=== PATIENT | female | born 1990 | race African-American/Black ===

== ENCOUNTER → 2018-03-09 | Outpatient (CLI) | payer OTHER ==
[2018-03-09 20:52] LABS: HCG, SERUM QUANTITATIVE 17902 MIU/ML
== END ==
LOC: M WUC 18:29
DX: N39.0 Urinary tract infection, site not specified (principal)
CPT/HCPCS: 84702

== ENCOUNTER → 2018-09-10 | Outpatient (CLI) | payer OTHER ==
[~2018-09-10] VITALS: Ht 154.9 cm; Wt 64.3 kg
[~2018-09-10] MED LIST: PRENCHW PO
[2018-09-10 21:17] VITALS: BP 118/61
[2018-09-10 21:59] LABS: APPEARANCE, URINE CLEAR (CLEAR); BACTERIA, URINE AUTO NEGATIVE (NEGATIVE); BILIRUBIN, URINE AUTO NEGATIVE (NEGATIVE); BLOOD, URINE BLOOD NEGATIVE (NEGATIVE); COLOR, URINE STRAW (YELLOW); GLUCOSE, URINE (UA) AUTO NEGATIVE (NEGATIVE); KETONE, URINE AUTO NEGATIVE (NEGATIVE); LEUKOCYTE ESTERASE, URINE AUTO 3+ (NEGATIVE); NITRITE, URINE AUTO NEGATIVE (NEGATIVE); PROTEIN, URINE AUTO NEGATIVE (NEGATIVE); RBC, URINE AUTO 1 /HPF (0-3); SPECIFIC GRAVITY URINE AUTO 1.003 (1.002-1.035); SQUAMOUS EPITHELIAL CELL UR AU 1 /HPF (0-6); UROBILINOGEN, URINE AUTO 0.2 mg/dL (0.0-2.0); WBC, URINE AUTO 1 /HPF (0-3)
[2018-09-10 23:08] VITALS: BP 104/55
--- NOTE | 2018-09-11 15:18 | HPE ---
DATE OF ADMISSION: 09/10/2018 A 28-year-old 3, para 1, last menstrual period (LMP) 01/27/2018, estimated date of confinement (EDC) 11/03/2018 at 32 and 3 weeks of gestation, came in without her passport without calling because she had some spotting when she voided and has had no spotting, cramping since. PAST HISTORY: In 2013, 14 weeks spontaneous , dilatation and curettage (D and C). In 2014, 38 weeks, spontaneous vaginal delivery, 6 pounds 9 ounces. Her temperature is 98.3, blood pressure 1118/61, respirations 18, pulse 129. Urine is 1003, +3 leukocytes, pH of 8, and trace of blood. Labs are A positive, HIV negative, hepatitis negative, RPR negative, rubella immune, Varicella immune. Urine had mixed manny. Gonorrhea and chlamydia negative. One-hour glucose 100. On examination, no acute distress. Symphysis fundus height is appropriate. Four-quadrant bowel sounds. Category 1 strip on monitor. No contractions. There are accelerations. No decelerations. Baseline was normal. Moderate variability. She has had no spotting. Wearing a pad. No contractions. Urine was sent for culture and sensitivity (C and S). Precautions were given. The rest of the examination is unremarkable. She is normocephalic, atraumatic. Neck: Full range of motion. Pupils equal and reactive to light. Distal pulses symmetric. No evidence of deep vein thrombosis (DVT), pulmonary embolism (PE), or superficial phlebitis. Lungs are clear bilaterally to bases. No wheezes or rhonchi. No costovertebral angle (CVA) tenderness. Four-quadrant bowel sounds are noted. She has no rashes, lesions, or pruritus. No arthralgia, myalgia. No complaint of joint pain. No complaint of cough, wheeze, shortness of breath, or dyspnea on exertion. Not bleeding. Neurologic complete. No incontinency, urgency, or frequency. No nausea, vomiting, diarrhea, constipation. No diabetic issues. No ACCOUNTS RECEIVABLE REPRESENTATIVE issues. PAST MEDICAL AND SURGICAL HISTORY: Noncontributory. FAMILY HISTORY: Noncontributory. SOCIAL HISTORY: She does not smoke, drink, abuse drugs. She is to a soldier. No domestic violence and good support systems. In summary, we have a 32 and 3 weeks of gestation who had some spotting with voiding. Urine was sent for C and S. Precautions were given. Use of increased fluids, cranberry pills, and we will evaluate her urine for C and S when it returns and call her if there is required antibiotic treatment. The patient was discharged undelivered. Has a followup September 24.
== END ==
LOC: M LDO 20:53
PROVIDERS: ATTEND Obstetrics & Gynecology
DX: O26.853 Spotting complicating pregnancy, third trimester (principal); Z3A.32 32 weeks gestation of pregnancy
CPT/HCPCS: 59025; 81001; 87086; G0378; G0463

== ENCOUNTER 2018-10-26 02:59 | Inpatient (IN) | payer OTHER ==
[~2018-10-26] VITALS: Ht 154.9 cm; Wt 67.4 kg
[2018-10-26] VITALS (54 sets, daily range): BP systolic 100–238; BP diastolic 51–116
[2018-10-26] MEDS ORDERED: VITA100T59 PO (03:15)
[2018-10-26] MEDS ORDERED: IRON27TA2 PO (03:15)
[2018-10-26] MEDS ORDERED: LR 1,000 ML IV SCH (03:38)
[2018-10-26] MEDS ORDERED: LACTATED RINGER'S 1000 ML IV STA (03:38)
--- NOTE | 2018-10-26 03:46 | HPEPDOC ---
Obstetrical History & Physical General Date of Admission Oct 26, 2018 at 03:37 History of Present Illness 28 y/o at 38+6 with LOF since 0140 this AM. Woke up with cramping. No VB. No reg ctx's yet. Chief Complaint: LOF, term, Occational cramping Information Provided By: Patient Care Care: Good Care Dating Final EDC by: LMP, 1st trimester (US) Past Medical History Past Obstetrical History : Past Obstetrical History: Multigravida Type of Delivery: Spontaneous Vaginal Del. (2014 ) ACADEMIC SPECIALIST History: Spontaneous (D&C 2013) Past Medical History Medical History denies Surgical History: Dilatation and Curettage Family History Significant Family History: No pertinent family hx Social History Marital Status: Family situation: Spouse/partner home Psychosocial History: No pertinent psych hx * Smoker: non-smoker Alcohol: Denies Drugs: denies Abuse Violence Screening Have you been hit/kicked/slapp: No Have you been sexually assault: No Imunizations Tdap status: current Influenza Status: current Allergies Coded Allergies: No Known Allergies (Unverified , 10/26/18) Medications Scheduled (Iron) 27 Mg Tab, 1 TAB PO DAILY Ascorbic Acid (Vitamin C) 100 Mg Tab, 1 TAB PO DAILY Multivitamins/ ( 19) 1 Chw Chw, 1 TAB PO DAILY Physical Examination Physical Examination GENERAL: Alert and oriented times three. ABDOMEN: Gravid and non-tender to touch. FETUS: Is vertex (VTX) by sterile vaginal examination (SVE), 1-2/70/-2/vtx ballotable, obvious PROM with clear fluid EXTREMITIES: No edema. Laboratory Data Urine Culture: Contaminated Pertinent Laboratoy Data Blood Type: A+ RBC Antibody Screen: Negative HIV: Negative Hepatitis B: Negative Hepatitis C: Unknown Rapid Plasma Reagin: Nonreactive Rubella: Immune Varicella: Immune Chlamydia/Gonorrhea: Negative Group B Streptococcus: Negative Quad Screen Test: Declined Cystic Fibrosis: Negative Glucose Tolerance Test: 100 Anatomy Ultrasound Placenta Location: Anterior Normal Anatomy: Yes Placenta Previa: No Assessment Variability: Moderate Accelerations: Positive Decelerations: None Tocometer Contractions: Yes Frequency: irregular Duration: less than 90 seconds Strength: palpated as moderate Assessment/Plan Assessment PROM at 140 today Plan Admit and orient. [facility] Medical Specialist and consent. Diet: clears Group B Streptococcus (GBS) neg Labs and intravenous (IV) per unit protocol. Lactated Ringers (LR): Bolus 1000 mL if decides on epidural, then at 125 mL/hr. Anticipate normal spontaneous delivery () C-S as appropriate. Will SBAR to Dr Gresham at 0730, he will then check and manage the pt SESSIONS,MAXIMINO Smith MD Oct 26, 2018 03:46
[2018-10-26 03:57] LABS: HEMATOCRIT 37.3 % (36.0-47.0); HEMOGLOBIN 11.9 g/dl (12.0-15.5); MEAN CORPUSCULAR HEMOGLOBIN 26.6 pg (27.0-33.0); MEAN CORPUSCULAR HGB CONC 31.9 g/dl (32.0-36.5); MEAN CORPUSCULAR VOLUME 83.4 fl (80.0-96.0); PLATELET COUNT, AUTOMATED 201 10^3/uL (150-450); RED BLOOD COUNT 4.47 10^6/uL (4.00-5.40); WHITE BLOOD COUNT 5.2 10^3/uL (4.0-10.0)
--- NOTE | 2018-10-26 07:56 | IPNPDOC ---
Text Note Date of Service The patient was seen on 10/26/18. NOTE Accepting care of Delvin. 28 yo at 38+6 weeks who presented with PROM, clear fluid at ~0130. has been uncomplicated. Cervix: unchanged from admission, -/-2. FHR has been Cat I. Will start pitocin for augmentation. Epidural or IV analgesia when and if patient desires. All patient questions answered. Ramona Gresham DO VS,Ezequiel, I+O VS, Ezequiel, I+O Laboratory Tests 10/26/18 03:51 Red Blood Count 4.47, Mean Corpuscular Volume 83.4, Mean Corpuscular Hemoglobin 26.6 L, Mean Corpuscular Hemoglobin Concent 31.9 L, Red Cell Distribution Width 16.1 H Vital Signs Date Time Temp Pulse Resp B/P (MAP) Pulse Ox O2 Delivery O2 Flow Rate FiO2 10/26/18 05:37 97.9 16 10/26/18 03:24 113 111/62 (78) RAMONA GRESHAM DO Oct 26, 2018 07:56
[2018-10-26] MEDS ORDERED: OXYTOCIN DRIP 30 UNITS in APPROPRIATE DILUENT 1 EA IV SCH ×2 (08:00→21:11)
[2018-10-26] MEDS: LR 1,000 ML IV SCH ×2 (08:10→14:02)
[2018-10-26] MEDS ORDERED: BUTORPHANOL 2 MG/ML INJ (J0595) IV ONE (09:30)
[2018-10-26] MEDS ORDERED: FENTANYL 2MCG/ML ROPIVACAINE 0.2% IN 0.9% NACL 100ML IVBAG As Ordered ONE (11:59)
[2018-10-26] MEDS ORDERED: ONDANSETRON 4MG/2ML VIAL (J2405) IV PRN ×2 (13:30→21:15)
[2018-10-26] MEDS ORDERED: FENTANYL/ROPIVACAINE/NACL BAG 100 ML EPIDURAL SCH (13:30)
[2018-10-26] MEDS ORDERED: EPIDURAL/PCA KEYS XX PRN (13:30)
[2018-10-26] MEDS ORDERED: NALOXONE INJ 0.4 MG/1 ML VIAL (J2310) IV PRN (13:30)
[2018-10-26] MEDS ORDERED: diphenhydrAMINE INJ 50MG/ML VIAL (J1200) IV PRN (13:30)
[2018-10-26] MEDS ORDERED: EPIDURAL COMMENT XX SCH (13:30)
[2018-10-26] MEDS ORDERED: LACTATED RINGER'S 1000 ML IV PRN (13:30)
[2018-10-26] MEDS ORDERED: REFRIGERATOR IV KEYS XX PRN (13:30)
[2018-10-26] MEDS ORDERED: ePHEDrine SULFATE 25 MG/5 ML(5MG/ML) SYRINGE IV PRN (13:30)
--- NOTE | 2018-10-26 13:30 | IPNPDOC ---
Text Note Date of Service The patient was seen on 10/26/18. NOTE Called to room as patient had 7-8 minute FHR deceleration to the 70s after e pidural placement. Pitocin was stopped, an FSE was placed by nursing staff, positional changes were initiated, and fluid bolus was given. BP was 120s/60s. Cervix: 6/80/-1 by my exam. FHR recovered to BL 125 with moderate variability. Will allow for rest and recovery. Patient is progressing. Safe to proceed. All patient questions answered. Ramona Gresham DO VS,Ezequiel, I+O VS, Ezequiel, I+O Laboratory Tests 10/26/18 03:51 Red Blood Count 4.47, Mean Corpuscular Volume 83.4, Mean Corpuscular Hemoglobin 26.6 L, Mean Corpuscular Hemoglobin Concent 31.9 L, Red Cell Distribution Width 16.1 H Vital Signs Date Time Temp Pulse Resp B/P (MAP) Pulse Ox O2 Delivery O2 Flow Rate FiO2 10/26/18 12:43 128, 126 126/77 (93) 10/26/18 12:35 98.0 18 10/26/18 07:12 98 RAMONA GRESHAM DO Oct 26, 2018 13:30
--- NOTE | 2018-10-26 15:54 | IPNPDOC ---
Text Note Date of Service The patient was seen on 10/26/18. NOTE Presented to room for assessment of progress. Cervix: 6/90/0. Prolonged deceleration lasting 5 minutes after check when patient was turned to her left side. Pitocin was again stopped, as a brief period of tachysystole was evident. FHR recovered to BL 130, moderate variability. Progress has been minimal over the last two hours, and Fetus is demonstrating intolerance to pitocin augmentation. Will re assess cervix in 2-4 hours. If there is no change will consider restarting pitocin. If fetus does not tolerate pitocin augmentation, or labor without augmentation, would recommend delivery. All patient and questions answered. DO Mp VS,Ezequiel, I+O VS, Ezequiel, I+O Laboratory Tests 10/26/18 03:51 Red Blood Count 4.47, Mean Corpuscular Volume 83.4, Mean Corpuscular Hemoglobin 26.6 L, Mean Corpuscular Hemoglobin Concent 31.9 L, Red Cell Distribution Width 16.1 H Vital Signs Date Time Temp Pulse Resp B/P (MAP) Pulse Ox O2 Delivery O2 Flow Rate FiO2 10/26/18 15:00 134 18 115/67 (83) 10/26/18 14:13 97.7 10/26/18 07:12 98 RAMONA DIAZ DO Oct 26, 2018 15:54
--- NOTE | 2018-10-26 17:20 | IPNPDOC ---
Text Note Date of Service The patient was seen on 10/26/18. NOTE Delvin and her had questions and were concerned about re starting p itocin. She reports she had to push for two hours with her first baby and still required a vacuum for delivery. She and her are concerned about restarting pitocin again because they may have a lot of labor left, and thus more time for her baby's heart rate to respond poorly. She is currently in active phase labor, but her contractions are irregular. FHR has been Cat I since the pitocin was halted at ~1540. She requests more time to whether to start it again. Which is certainly reasonable as status is reassuring. I discussed rechecking her cervix at ~1800. If there is no change I would recommend pitocin augmentation. Should she decline pitocin augmentation, and again her cervix remains unchanged, then she may require a c section. She has been 6cm since ~1315 today. All patient and questions answered to their satisfaction. Ramona Gresham DO VS,Ezequiel, I+O VS, Ezequiel, I+O Laboratory Tests 10/26/18 03:51 Red Blood Count 4.47, Mean Corpuscular Volume 83.4, Mean Corpuscular Hemoglobin 26.6 L, Mean Corpuscular Hemoglobin Concent 31.9 L, Red Cell Distribution Width 16.1 H Vital Signs Date Time Temp Pulse Resp B/P (MAP) Pulse Ox O2 Delivery O2 Flow Rate FiO2 10/26/18 15:59 126 18 107/58 (74) 10/26/18 14:13 97.7 10/26/18 07:12 98 RAMONA GRESHAM DO Oct 26, 2018 17:20
--- NOTE | 2018-10-26 18:10 | IPNPDOC ---
Text Note Date of Service The patient was seen on 10/26/18. NOTE Presented to room for assessment. Delvin reports feeling pelvic pressure. Cervix: 9/C/+1. FHR Cat I with +accels, no decels. Delvin is progressing well on her own, she does not require pitocin augmentation. Maternal heart rate has been 120s-130s. Axillary temp 101, oral temp 97. She does not meet criteria for chorio. Safe to proceed. All patient and questions answered. DO Mp VS,Ezequiel, I+O VS, Ezequiel, I+O Laboratory Tests 10/26/18 03:51 Red Blood Count 4.47, Mean Corpuscular Volume 83.4, Mean Corpuscular Hemoglobin 26.6 L, Mean Corpuscular Hemoglobin Concent 31.9 L, Red Cell Distribution Width 16.1 H Vital Signs Date Time Temp Pulse Resp B/P (MAP) Pulse Ox O2 Delivery O2 Flow Rate FiO2 10/26/18 17:59 139 20 118/67 (84) 10/26/18 17:48 97.6 10/26/18 07:12 98 RAMONA DIAZ DO Oct 26, 2018 18:10
[2018-10-26] MEDS ORDERED: ACETAMINOPHEN 325 MG TAB PO ONE (18:15)
[2018-10-26] MEDS ORDERED: MEASLES,MUMPS,RUBELLA VACCINE INJ (MMR-II) (90707) SC SCH (21:15)
[2018-10-26] MEDS ORDERED: DIBUCAINE 1% OINTMENT 30GM TOP PRN (21:15)
[2018-10-26] MEDS ORDERED: DOCUSATE SODIUM 100 MG CAP PO PRN (21:15)
[2018-10-26] MEDS ORDERED: ACETAMINOPHEN 500 MG TAB PO PRN (21:15)
[2018-10-26] MEDS ORDERED: RHOGAM 300 MCG (1500 IU) INJ (J2790) IM SCH (21:15)
--- NOTE | 2018-10-26 21:19 | DNPDOC ---
[facility] Delivery Note Delivery Note DATE OF DELIVERY: 26Oct2018 at ~2044 PREDELIVERY DIAGNOSIS: 38+6 weeks' gestation and labor. POST DELIVERY DIAGNOSIS: Delivered. PROCEDURE: Spontaneous vaginal delivery FINANCIAL SERVICES COUNSELOR: Dr. Gresham ANESTHESIA: Neuraxial. ESTIMATED BLOOD LOSS: 300 mL. FINDINGS: 7 pound, 7 ounce, male infant, Score 9/9 DELIVERY SUMMARY: Presented to room for assessment. Cervix C/C/+2. The bed was broken down and she was prepped for delivery. Her echevarria catheter was removed. Pushing effort was initially poor, and pitocin was restarted. After about 1 hour of pushing her infant delivered. Presentation was REKHA with restitution to ROT. The left anterior shoulder delivered with gentle guidance followed easily by the remainder of the body. The infant was dried and stimulated on the field and a bulb suction was used. The infant cried vigorously and was placed on the maternal abdomen. The three vessel cord was then clamped and cut by the FOB. Third stage was spontaneous and it was productive of an intact placenta. The uterine fundus was firmed with massage and pitocin was administered IV bolus. The vagina, cervix, and perineum were inspected. There was a midline first degree vaginal floor laceration and bilateral sulcal / vaginal side wall lacerations that were bleeding briskly. These lacerations were all repaired with 3-0 vicryl suture in multiple figure of eight sutures. There was excellent cosmesis with repair. There was, however, persistent oozing and vaginal packing was placed. There was then excellent hemostasis. The patient's echevarria catheter was then re inserted. The uterine fundus was palpated again and was firm. Sponge, instrument, and needle counts were correct X2. Mother stable when I left the room. DO JOE Merino CHRISTOPHER J. DO Oct 26, 2018 21:19
[2018-10-27 06:20] VITALS: BP 102/62
--- NOTE | 2018-10-27 07:35 | IPNPDOC ---
Progress Note Date of Service: Oct 27, 2018 Progress Note Delvin is a 28 yo G3 now P2 who underwent an uncomplicated on 26Oct2018 late in the evening. She had vaginal packing placed due to needing an extensive vaginal repair after delivery. This morning she reports feeling cramping. She has been resting overnight and hasn't been ambulatory. A echevarria catheter is in place. She denies any fevers/chills, SOB, chest pain, or dysuria. Chaperoned by mold closer Vitals - VSS, afebrile, normotensive, non tachycardic General - AAOX3, laying in bed, NAD Abdomen - Fundus firm at U-2. No fundal tenderness Pelvic - Vaginal packing removed whole and intact. Minimal lochia Urine - Output has been excellent via echevarria Delvin is doing well this AM and is making an appropriate recovery. Vaginal packing removed without issues this AM. Plan to remove echevarria, ambulate, and monitor for DTV. Continue routine care. Anticipate dc home tomorrow. Ramona Gresham DO VS, I&O, 24H, Fishbone Vital Signs/I&O Vital Signs Date Time Temp Pulse Resp B/P (MAP) Pulse Ox O2 Delivery O2 Flow Rate FiO2 10/27/18 06:20 97.4 119 18 102/62 (75) 10/26/18 07:12 98 I&O- Last 24 Hours up to 6 AM 10/27/18 06:00 Intake Total 7800.4 ml Output Total 4900 ml Balance 2900.4 ml RAMONA GRESHAM DO Oct 27, 2018 07:35
[2018-10-27] MEDS: PRENATAL VITAMINS CHEWABLE TABLET PO SCH (09:33)
[2018-10-27] MEDS: IBUPROFEN 800 MG TAB PO PRN ×2 (09:33→19:49)
[2018-10-27 18:00] VITALS: BP 117/61
[2018-10-28 05:48] VITALS: BP 94/54
[2018-10-28] MEDS: PRENATAL VITAMINS CHEWABLE TABLET PO SCH (07:27)
[2018-10-28] MEDS: IBUPROFEN 800 MG TAB PO PRN (07:27)
--- NOTE | 2018-10-28 07:53 | IPNPDOC ---
Progress Note Date of Service: Oct 28, 2018 Day#: 2 Progress Note PPD 2 SUBJECT: Delvin is a 28yo G3 now P2012 who underwent an uncomplicated on [id number] late in the evening, doing well day # 2. She has been ambulating, voiding spontaneously without issue and tolerating regular diet. Bottle feeding without issue. Reports lochia is like a normal period. No n/v/f/c. OBJECTIVE: VITAL SIGNS: Within normal limits, afebrile. Alert and oriented times three. Abdomen: Fundus firm at U-2. Soft, NTTP. ASSESSMENT: Delvin is a 28yo G3 now P2012 who underwent an uncomplicated on [id number] late in the evening, doing well day # 2. Vitals within normal limits, afebrile, hemodynamically stable with no evidence of infection. PLAN: 1. Discharge to home today. 2. Tylenol and Motrin for pain. 3. Interested in OCP for contraception, will discuss further at PP visit 5. Routine PP visit in 6 weeks in clinic. 6. Discussed return precautions at length. Dr. Reba Pettit MD VS, I&O, 24H, Fishbone Vital Signs/I&O Vital Signs Date Time Temp Pulse Resp B/P (MAP) Pulse Ox O2 Delivery O2 Flow Rate FiO2 10/28/18 05:48 97.7 92 18 94/54 (67) 10/26/18 07:12 98 I&O- Last 24 Hours up to 6 AM 10/28/18 06:00 Output Total 1300 ml Balance -1300 ml Reba Pettit MD Oct 28, 2018 07:53
[2018-10-28] MEDS ORDERED: ACET500T15 PO (08:13)
[2018-10-28] MEDS ORDERED: MOTR200T44 PO (08:14)
[2018-10-28] MEDS ORDERED: DIBU10OI TOP (08:14)
--- NOTE | 2018-10-30 09:42 | IPN ---
DATE OF SERVICE: 10/27/2018 This patient and requested circumcision of their male . After discussing risks and benefits of circumcision, the medical and nonmedical indications, the penile block, and aftercare, expressed understanding, penile block aftercare and bleeding, signed and witnessed the consent form. All questions were answered. 20-minute discussion. We await the clearance by the bar staff.
== END 2018-10-28 12:50 | disposition home or self-care (01) | DRG 807 ==
LOC: M LDO 02:59 → M LDI 03:37 → M OBS 22:50
PROVIDERS: ADMIT Obstetrics & Gynecology; ATTEND Obstetrics & Gynecology
PROC: 10E0XZZ Delivery of Products of Conception, External Approach (ICD-10-PCS; principal; 2018-10-26)
PROC: 0HQ9XZZ Repair Perineum Skin, External Approach (ICD-10-PCS; 2018-10-26)
DX: O42.02 Full-term premature rupture of membranes, onset of labor within 24 hours of rupture (principal); Z37.0 Single live birth; Z3A.38 38 weeks gestation of pregnancy; O70.0 First degree perineal laceration during delivery

== ENCOUNTER 2019-02-01 21:30 | Emergency (ER) | payer OTHER ==
[~2019-02-01] VITALS: Ht 154.9 cm; Wt 58.2 kg
[~2019-02-01 21:30] MED LIST changes: +ACET500T15 PO; +DIBU10OI TOP; +IRON27TA2 PO; +MOTR200T44 PO; +VITA100T59 PO
[2019-02-01] MEDS ORDERED: GIAN1TAB PO (21:33)
[2019-02-01 22:04] LABS: BASO % 0.3 % (0.0-1.0); EOS # 0.2 10^3/uL (0.0-0.50); EOS % 2.7 % (0.0-3.0); HEMATOCRIT 37.9 % (36.0-47.0); LYMPH # 3.1 10^3/uL (1.5-6.5); MEAN CORPUSCULAR HEMOGLOBIN 26.8 pg (27.0-33.0); MEAN CORPUSCULAR HGB CONC 31.7 g/dl (32.0-36.5); MEAN CORPUSCULAR VOLUME 84.6 fl (80.0-96.0); MONO # 0.4 10^3/uL (0.0-0.8); MONO % 4.6 % (0.0-5.0); NEUTROPHILS # 4.2 10^3/uL (1.8-7.7); NEUTROPHILS % 53.1 % (36.0-66.0); PLATELET COUNT, AUTOMATED 309 10^3/uL (150-450); RED BLOOD COUNT 4.48 10^6/uL (4.00-5.40); WHITE BLOOD COUNT 7.8 10^3/uL (4.0-10.0)
[2019-02-01 22:23] LABS: BLOOD UREA NITROGEN 7 MG/DL (7-18); CALCIUM LEVEL 8.5 MG/DL (8.5-10.1); CARBON DIOXIDE LEVEL 24 MEQ/L (21-32); CHLORIDE LEVEL 107 MEQ/L (98-107); CK-MB VALUE MASS < 1.0 NG/ML (<3.6); CPK CREATINE PHOSPHOKINASE 100 U/L (26-192); CREATININE FOR GFR 0.78 MG/DL (0.55-1.30); GLOMERULAR FILTRATION RATE > 60.0 (>60); GLUCOSE, FASTING 121 MG/DL (70-100); POTASSIUM SERUM 3.5 MEQ/L (3.5-5.1); SODIUM LEVEL 140 MEQ/L (136-145); TROPONIN I < 0.02 NG/ML (< 0.10)
[2019-02-01 22:30] LABS: HCG, SERUM QUALITATIVE NEGATIVE (NEGATIVE)
[2019-02-01] MEDS ORDERED: NS 1,000 ML IV ONE (22:30)
[2019-02-01 22:43] LABS: PROTHROMBIN TIME 13.3 SECONDS (12.1-14.4)
[2019-02-01 22:45] LABS: D-DIMER QUANT 520.13 ng/ml (<500)
[2019-02-02] MEDS ORDERED: ISOVUE-370 76% 100ML VIAL (Q9967) As Ordered ONE (00:01)
--- NOTE | 2019-02-02 00:46 | REPVR ---
EXAM: CT Angiography Chest With Contrast EXAM DATE/TIME: 02/01/2019 11:31 PM CLINICAL HISTORY: 28 years old, female; Chest pain; Type not specified; Additional info: Palpitations, chest pain, SOB TECHNIQUE: Imaging protocol: Axial computed tomographic angiography images of the chest with intravenous contrast using CT angiography protocol. Coronal and sagittal reformatted images were created and reviewed. 3D rendering: MIP reconstructed images were created and reviewed. Radiation optimization: All CT scans at this facility use at least one of these dose optimization techniques: automated exposure control; mA and/or kV adjustment per patient size (includes targeted exams where dose is matched to clinical indication); or iterative reconstruction. Contrast material: ISO; Contrast volume: 75 ml; Contrast route: AC; COMPARISON: CR Chest, 2 view PA, Lat 02/01/2019 10:29 PM FINDINGS: Pulmonary arteries: Contrast opacification satisfactory. No intraluminal filling defect. Aorta: Unremarkable. No aneurysm or dissection. Lungs: Unremarkable. No consolidation. No mass. Pleural space: Unremarkable. No pneumothorax. No pleural effusion. Heart: Unremarkable. No cardiomegaly. No pericardial effusion. Liver: 1.3 x 1 cm cyst in the right hepatic lobe. Lymph nodes: No pathologically enlarged lymph nodes. Bones/joints: No acute osseous abnormality. Soft tissues: Unremarkable. IMPRESSION: 1. No CT evidence of pulmonary embolism. 2. Additional findings, as above. Electronically signed by: Robby Camejo On 02/02/2019 00:45:50 AM
[2019-02-02] MEDS ORDERED: NS 1,000 ML IV ONE (01:00)
[2019-02-02] MEDS ORDERED: Holter (01:04)
[2019-02-02 02:21] VITALS: BP 120/80
--- NOTE | 2019-02-02 06:17 | ECGEPIP ---
[facility] - ED Test Date: 2019-02-01 Pat Name: BOBBY TURNER Department: Room: - Gender: Female Highway Maintenance Technician: : 1990 Requested By: MU Arndt Order Number: [id number] Reading MD: Jimy Chao Measurements Intervals [place] Rate: 114 P: 42 TX: 178 QRS: 44 QRSD: 81 T: QT: 316 QTc: 436 Interpretive Statements SINUS TACHYCARDIA NONSPECIFIC T-WAVE ABNORMALITY BASELINE ARTIFACT AFFECTS INTERPRETATION NO PRIORS FOR COMPARISON Electronically Signed on 02-02-2019 6:16:39 EDT by Jimy Chao
--- NOTE | 2019-02-02 11:30 | REP ---
Chest two views HISTORY: Shortness of breath Comparison: None The lungs are clear. The heart is normal in size. The pulmonary vasculature is normal in appearance. The bony structure is intact. IMPRESSION: No acute disease. Electronically Signed by Antonio Cunningham MD 02/02/2019 08:28 A
== END 2019-02-02 02:25 | disposition home or self-care (01) ==
LOC: M ED 21:30
DX: R00.2 Palpitations (principal); R00.0 Tachycardia, unspecified; R94.31 Abnormal electrocardiogram [ECG] [EKG]; Z79.3 Long term (current) use of hormonal contraceptives
CPT/HCPCS: 71046; 71275; 80048; 82550; 82553; 84443; 84484; 84703; 85025; 85379; 85610; 93005; 93041; 94760; 96360; 96361; 99285; Q9967

== ENCOUNTER → 2019-02-12 | Outpatient (CLI) | payer OTHER ==
[~2019-02-12] MED LIST changes: +GIAN1TAB PO; +Holter
--- NOTE | 2019-02-14 18:33 | HOLTMON ---
[facility] Test Date: 2019-02-12 Pat Name: BOBBY TURNER Department: Room: - Gender: Female Architect In Training: [employer]ogany Terrazas/BECKY KING : 1990 Requested By: MU Arndt Order Number: [id number] Reading MD: Bimal Castillo Interpretive Statements FREDERICK TAKES NO MEDICATIONS AND HAS NO FAMILY HISTORY OF HEART DISEASE, NO DIARY SYMPTOMS NOTED Monitored for 24 hours, the observed rhythm findings were well within normal limits. 1 single isolated PVC Electronically Signed on 02-14-2019 18:32:36 EDT by Bimal Castillo
== END ==
LOC: M EKG 10:32
PROVIDERS: ATTEND Internal Medicine
DX: R00.2 Palpitations (principal)